=== PATIENT | male | born 1995 | race Caucasian/White ===

== ENCOUNTER 2019-08-24 16:28 | Observation (INO) | payer MEDICAID, OTHER ==
[~2019-08-24] VITALS: Ht 162.6 cm; Wt 77.7 kg
[~2019-08-24 16:28] MED LIST: QUET100T4 PO; RISP1TAB45
[2019-08-24] MEDS ORDERED: SODIUM CHLORIDE FLUSH 10ML SYR IVF ONE (17:00)
[2019-08-24] MEDS ORDERED: ONDANSETRON 2MG/ML, 2ML IVPush ONE (17:00)
[2019-08-24] MEDS ORDERED: SODIUM CHLORIDE 0.9% 1,000ML IVBOLUS ONE (17:00)
[2019-08-24 17:08] LABS: BASOPHILS # (AUTO) 0.03 x10^3/uL (0-0.1); BASOPHILS % (AUTO) 0 % (0-1); EOSINOPHILS # (AUTO) 0.03 x10^3/uL (0-0.4); EOSINOPHILS % (AUTO) 0 % (1-7); LYMPHOCYTES # (AUTO) 1.08 x10^3/uL (1-3.4); LYMPHOCYTES % (AUTO) 12 % (22-44); MD NO; MEAN CORPUSCULAR HEMOGLOBIN 31.3 pg (27.5-34.5); MEAN CORPUSCULAR HGB CONC 33.6 g/dL (33.2-36.2); MEAN CORPUSCULAR VOLUME 93.2 fL (81-97); MEAN PLATELET VOLUME 7.8 fL (7.4-10.4); MONOCYTES # (AUTO) 0.55 x10^3/uL (0.2-0.8); MONOCYTES % (AUTO) 6 % (2-9); NEUTROPHILS # (AUTO) 7.12 x10^3/uL (1.8-6.8); NEUTROPHILS % (AUTO) 81 % (42-75); PLATELET COUNT 275 x10^3/uL (130-400); RED BLOOD COUNT 4.94 x10^6/uL (4.38-5.82); RED CELL DISTRIBUTION WIDTH 13.6 % (9.4-14.8)
[2019-08-24 17:15] LABS: ALANINE AMINOTRANSFERASE 52 U/L (12-78); ALBUMIN 4.5 g/dL (3.4-5.0); ANION GAP 7 mmol/L (5-15); CHLORIDE 108 mmol/L (98-107); CREATININE 0.98 mg/dL (0.7-1.3)
[2019-08-24 17:18] LABS: ALKALINE PHOSPHATASE 47 U/L (45-117); BILIRUBIN,TOTAL 0.4 mg/dL (0.2-1.0); TOTAL PROTEIN 7.7 g/dL (6.4-8.2)
--- NOTE | 2019-08-24 17:29 | NUR ---
(PREVIOUS NOTE CHARTED UNDER WRONG PROVIDER): PT UPRIGHT ON GURNEY WITH EYES CLOSED, STATES [place] IS MUCH BETTER, GIVEN 240ML PO FLUIDS, RESPONDS APPROP TO STAFF, SPO2 84% WHILE RESTING BUT INCREASES TO 90-92% ON RA- PA & DR ESPARZA AWARE, PT DENIES SOB OR OTHER RESP SX, COMFORT MEASURES PROVIDED, [facility] AT BS, CALL LIGHT WITHIN REACH.
--- NOTE | 2019-08-24 17:29 | NUR ---
Note trishnegro in EDM - 08/24/19 at 1808 by QUINTIN PT UPRIGHT ON [place] WITH EYES CLOSED, STATES [place] IS MUCH BETTER, GIVEN 240ML PO FLUIDS, RESPONDS APPROP TO STAFF, SPO2 84% WHILE RESTING BUT INCREASES TO 90-92% ON RA- PA & DR ESPARZA AWARE, PT DENIES SOB OR OTHER RESP SX, COMFORT MEASURES PROVIDED, [facility] AT BS, CALL LIGHT WITHIN REACH.
--- NOTE | 2019-08-24 17:50 | NUR ---
PT MAINTAINED SPO2 OF 96%RA DURING AMBULATION, PT C/O [place] WHEN RETURNED TO ROOM, MEDICATED PER EMAR- PA AWARE.
[2019-08-24] MEDS ORDERED: ONDANSETRON 2MG/ML, 2ML ONE (17:51)
--- NOTE | 2019-08-24 18:26 | NUR ---
PT UPRIGHT ON [place] WITH EYES CLOSED, STATES [place] IS MUCH BETTER, GIVEN 240ML PO FLUIDS, RESPONDS APPROP TO STAFF, SPO2 84% WHILE RESTING BUT INCREASES TO 90-92% ON RA- PA & DR ESPARZA AWARE, PT DENIES SOB OR OTHER RESP SX, COMFORT MEASURES PROVIDED, [facility] AT BS, CALL LIGHT WITHIN REACH.
[2019-08-24 18:46] LABS: C-REACTIVE PROTEIN, QUANT 0.33 mg/dL (0.02-0.49)
--- NOTE | 2019-08-24 19:00 | NUR ---
REPORT GIVEN TO EL
--- NOTE | 2019-08-24 19:22 | NUR ---
Report received from ROBERT Huertas. This RN to assume care. Patient resting with no complaints.
[2019-08-24 21:30] LABS: TROPONIN I < 0.015 ng/mL (0.000-0.045)
[2019-08-24] MEDS ORDERED: ACETAMINOPHEN 325 MG TABLET PO PRN (21:30)
[2019-08-24] MEDS: LACTATED RINGERS 1,000 ML IV SCH (21:30)
[2019-08-24] MEDS ORDERED: hydrALAzine 20 MG/ML, 1ML IVPush PRN (21:30)
[2019-08-24] MEDS ORDERED: TRAZODONE 50MG TABLET PO PRN (21:30)
[2019-08-24] MEDS: ENOXAPARIN 40 MG/0.4 ML SQ SCH (21:30)
[2019-08-24] MEDS ORDERED: ONDANSETRON 2MG/ML, 2ML IVPush PRN (21:30)
[2019-08-24 23:30] LABS: AMPHETAMINE SCREEN, URINE Positive (Negative); BARBITURATE SCREEN, URINE Negative (Negative); BENZODIAZEPINE SCREEN, URINE Negative (Negative); CANNABINOID SCREEN, URINE Negative (Negative); COCAINE SCREEN, URINE Negative (Negative); METHADONE SCREEN, URINE Negative (Negative); OPIATE SCREEN, URINE Negative (Negative)
[2019-08-24] MEDS ORDERED: ENOXAPARIN 40 MG/0.4 ML ONE (23:32)
[2019-08-25 03:41] LABS: ANION GAP 4 mmol/L (5-15); CALCIUM 8.2 mg/dL (8.5-10.1); CHLORIDE 109 mmol/L (98-107); CHOLESTEROL, TOTAL 134 mg/dL (140-239); CREATININE 0.87 mg/dL (0.7-1.3); TRIGLYCERIDES 39 mg/dL (50-200); VLDL CHOLESTEROL 8 mg/dL (0-25)
[2019-08-25 03:44] LABS: CHOL/HDL RATIO 3.3; HDL CHOL % 31 % (26-37); HDL CHOLESTEROL (DIRECT) 41 mg/dL (40-60); LDL CHOLESTEROL,CALCULATED 85 mg/dL (54-169); LDL/HDL RATIO 2.1 (0.5-3.0)
[2019-08-25 03:45] LABS: TROPONIN I < 0.015 ng/mL (0.000-0.045)
[2019-08-25 03:46] LABS: BASOPHILS # (AUTO) 0.03 x10^3/uL (0-0.1); BASOPHILS % (AUTO) 1 % (0-1); EOSINOPHILS # (AUTO) 0.06 x10^3/uL (0-0.4); EOSINOPHILS % (AUTO) 1 % (1-7); LYMPHOCYTES # (AUTO) 1.24 x10^3/uL (1-3.4); LYMPHOCYTES % (AUTO) 23 % (22-44); MD NO; MEAN CORPUSCULAR HEMOGLOBIN 31.2 pg (27.5-34.5); MEAN CORPUSCULAR HGB CONC 33.2 g/dL (33.2-36.2); MEAN CORPUSCULAR VOLUME 93.9 fL (81-97); MEAN PLATELET VOLUME 7.6 fL (7.4-10.4); MONOCYTES # (AUTO) 0.52 x10^3/uL (0.2-0.8); MONOCYTES % (AUTO) 10 % (2-9); NEUTROPHILS # (AUTO) 3.53 x10^3/uL (1.8-6.8); NEUTROPHILS % (AUTO) 66 % (42-75); PLATELET COUNT 254 x10^3/uL (130-400); RED BLOOD COUNT 4.66 x10^6/uL (4.38-5.82); RED CELL DISTRIBUTION WIDTH 13.6 % (9.4-14.8)
--- NOTE | 2019-08-25 06:25 | NUR ---
Report given to ROBERT Garcia. Patient to be transferred to ICU8
[2019-08-25] MEDS: LACTATED RINGERS 1,000 ML IV SCH ×3 (06:42→16:43)
[2019-08-25 08:02] VITALS: BP 113/56
[2019-08-25] MEDS ORDERED: KETOROLAC 30 MG/1 ML IVPush PRN (10:00)
[2019-08-25] MEDS ORDERED: KETOROLAC 30 MG/1 ML ONE (10:21)
[2019-08-25 13:36] VITALS: BP 114/52
[2019-08-25] MEDS: ENOXAPARIN 40 MG/0.4 ML SQ SCH (21:05)
[2019-08-25 21:14] VITALS: BP 127/84
[2019-08-26 00:27] VITALS: BP 118/77
[2019-08-26 07:29] VITALS: BP 118/66
[2019-08-26] MEDS ORDERED: ONDA4TAB7 PO (12:00)
[2019-08-26 12:30] VITALS: BP 138/80
== END 2019-08-26 14:30 | disposition home or self-care (01) ==
LOC: ED 16:53 → INTOOBSV 21:31 → EDIP 21:31 → ICU 08-25 06:27 → 4EST 08-25 21:03
PROVIDERS: ADMIT Family Medicine; ATTEND Internal Medicine
DX: J96.01 Acute respiratory failure with hypoxia (principal); R07.89 Other chest pain; F12.90 Cannabis use, unspecified, uncomplicated; F15.90 Other stimulant use, unspecified, uncomplicated; J06.9 Acute upper respiratory infection, unspecified; R11.2 Nausea with vomiting, unspecified; Z88.0 Allergy status to penicillin; Z88.6 Allergy status to analgesic agent; Z87.891 Personal history of nicotine dependence; Z79.899 Other long term (current) drug therapy
CPT/HCPCS: 36415; 71045; 71250; 80048; 80053; 80061; 80307; 83615; 83690; 83735; 83880; 84145; 84484; 85025; 85379; 86140; 87081; 93005; 93306; 96361; 96372; 96374; 96375; 96376; 99285; G0378; J1650; J1885; J2405; J7030; J7120

== ENCOUNTER 2019-12-11 09:05 | Emergency (ER) | payer MEDICAID ==
[~2019-12-11] VITALS: Ht 162.6 cm; Wt 76.7 kg
[~2019-12-11 09:05] MED LIST changes: +ONDA4TAB7 PO
[2019-12-11 09:13] VITALS: BP 122/76
--- NOTE | 2019-12-11 09:21 | NUR ---
PT TO ROOM 4 FROM TRIAGE. HE HAS HIS RIGHT ARM WAPPED IN FABRIC. WE ARE AWAITING AN MD TO ASSESS.
[2019-12-11] MEDS ORDERED: LIDOCAINE-MPF 1%, 5ML ONE ×2 (09:22→09:55)
[2019-12-11] MEDS ORDERED: DIPH,PERTUSS(ACELL),TET VAC/PF 0.5 ML IM-VACC ONE ×2 (09:28→09:30)
[2019-12-11] MEDS ORDERED: LIDOCAINE-MPF 1%, 5ML INFIL ONE (09:30)
--- NOTE | 2019-12-11 09:33 | NUR ---
Break RN note: tdap administered per order. Pt resting in bed, NADN, denies needs.
--- NOTE | 2019-12-11 09:43 | NUR ---
pt to and from [employer] tech. he tolerated the imaging well.
--- NOTE | 2019-12-11 09:58 | NUR ---
extra lido provided to prep for cleaning.
== END 2019-12-11 11:04 | disposition home or self-care (01) ==
LOC: ED 09:48
DX: S61.511A Laceration without foreign body of right wrist, initial encounter (principal); F17.200 Nicotine dependence, unspecified, uncomplicated; W22.8XXA Striking against or struck by other objects, initial encounter; Y93.89 Activity, other specified; Y92.098 Other place in other non-institutional residence as the place of occurrence of the external cause; Y99.8 Other external cause status
CPT/HCPCS: 12042; 90471; 90715; 99284

== ENCOUNTER 2020-06-10 18:18 | Emergency (ER) | payer MEDICAID ==
[~2020-06-10] VITALS: Ht 162.6 cm; Wt 81.8 kg
[2020-06-10 18:24] VITALS: BP 127/74
== END 2020-06-10 19:50 | disposition home or self-care (01) ==
LOC: ED 19:00
DX: J02.0 Streptococcal pharyngitis (principal); R53.83 Other fatigue; Z88.0 Allergy status to penicillin
CPT/HCPCS: 71045; 87880; 99284

== ENCOUNTER 2020-06-13 15:33 | Emergency (ER) | payer MEDICAID ==
[~2020-06-13] VITALS: Ht 162.6 cm; Wt 81.9 kg
[2020-06-13 16:49] VITALS: BP 138/71
== END 2020-06-13 16:51 | disposition home or self-care (01) ==
LOC: ED 16:06
DX: J02.0 Streptococcal pharyngitis (principal); Z20.822 Contact with and (suspected) exposure to COVID-19
CPT/HCPCS: 87635; 99283

== ENCOUNTER 2020-07-19 17:05 | Emergency (ER) | payer MEDICAID ==
[~2020-07-19] VITALS: Ht 162.6 cm; Wt 83.7 kg
[2020-07-19 17:07] VITALS: BP 135/78
--- NOTE | 2020-07-19 17:22 | NUR ---
pt is a 25m complaining of right ear pain since last thursday. he was seen here and put on a course of antibiotics which is not helping. pt now has fever and increased pain. call light within reach.
--- NOTE | 2020-07-19 18:35 | NUR ---
Patient/Caregiver given discharge instructions and they have confirmed that they understand the instructions. Patient ambulatory with steady gait.
== END 2020-07-19 18:36 | disposition home or self-care (01) ==
LOC: ED 18:15
DX: H60.591 Other noninfective acute otitis externa, right ear (principal); H60.11 Cellulitis of right external ear
CPT/HCPCS: 99283